=== PATIENT | female | born 1945 | race Caucasian/White ===

== ENCOUNTER 2022-05-15 09:42 | Outpatient (CLI) | payer MEDICARE, SELFPAY | END 2022-05-15 09:43 | disposition home or self-care (01) | LOC: ANHAUDIO 09:43 | PROVIDERS: PCP Internal Medicine; Visit Provider Nurse Practitioner | DX: H90.3 Sensorineural hearing loss, bilateral (principal) | CPT/HCPCS: 92557; 92567 ==

== ENCOUNTER 2025-02-05 09:47 | Outpatient (CLI) | payer MEDICARE, SELFPAY ==
--- OUTSIDE RECORDS SUMMARY | 2025-02-03 10:15 | XMS_ITS | Encounter Summary ---
Author Organization [facility] Address [address] [facility] [place] [address] Care Team Providers Care Lease Analyst Name Role Phone Felicity Jones RN, Justin MD Primary Care Provider [phone] Reason for Referral * Radiology Services (Routine) - Closed Specialty Diagnoses / Procedures Referred By Contac t Referred To Contact Diagnoses Alcoholic cirrhosis of liver without ascites (HCC) Secondary esophageal varices without bleeding (HCC) FH: colon cancer in relative diagnosed at >50 years old Procedures US Abdomen Limited Gabriele Pearl MD [address] DIV [place] [address] Phone: tel: fax: [facility] [phone] [place] [address] Phone: tel: fax: Referral ID Status Reason Start Date Expiration Date Visits Re quested Visits Authorized [id number] Closed 09/18/2024 09/18/2025 1 1 Reason for Visit * Radiology Services (Routine) - Closed Specialty Diagnoses / Procedures Referred By Contac t Referred To Contact Diagnoses Alcoholic cirrhosis of liver without ascites (HCC) Secondary esophageal varices without bleeding (HCC) FH: colon cancer in relative diagnosed at >50 years old Procedures US Abdomen Limited Gabriele Pearl MD [address] DIV [place]STR[place] [address] Phone: tel: fax: [facility] [phone] [place] [address] Phone: tel: fax: Referral ID Status Reason Start Date Expiration Date Visits Re quested Visits Authorized [id number] Closed 09/18/2024 09/18/2025 1 1 Encounter Details Date Type Department Care Team (Latest Contact Info) Description 02/03/2025 10:15 AM CDT - 02/03/2025 11:59 PM CDT Hospital Encounter [facility] [address] [place] [address] Gabriele Pearl MD [address] OF GASTR[place] [address] Discharge Disposition: Home or Self Care Social History Tobacco Use Types Packs/Day Years Used Date Smoking Tobacco: Former Cigarettes Q uit: 06/03/1967 Smokeless Tobacco: Never Alcohol Use Standard Drinks/Week Comments No 0 (1 standard drink = 0.6 oz pur e alcohol) AUDIT-C Answer Date Recorded Q1: How often do you have a drink containing alcohol? Never 08/13/2022 Q2: How many drinks containi ng alcohol do you have on a typical day when you are drinking? Patient does not drink Q3: How often do you have si x or more drinks on one occasion? 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 Answer Date of Assessment Author No 08/13/2022 11:37 AM Bee Valencia RN * Is person blind or have serious difficulty seeing? Answer Date of Assessment Author No 08/13/2022 11:37 AM CDBee Fox RN * Does person have serious difficulty walking/climbing stairs? Answer Date of Assessment Author No 08/13/2022 11:37 AM Bee Valencia RN * Does person have difficulty dressing/bathing? Answer Date of Assessment Author No 08/13/2022 11:37 AM Bee Valencia RN * Does person have difficulty doing errands alone? Answer Date of Assessment Author No 08/13/2022 11:37 AM Bee Valencia RN documented as of this encounter Mental Status * Does person have difficulty concentrating/remembering/making decisions? Answer Entry Date Author No 08/13/2022 11:37 AM Bee Valencia RN documented in this encounter Medications at Time of Discharge amLODIPine (NORVASC) 5 MG tablet Take 1 (one) tablet by mouth once daily 10/13/2019 levothyroxine (SYNTHROID) 75 MCG tablet Take 1 (one) tablet by mouth once daily 10/16/2019 losartan (COZAAR) 100 MG tablet Take 1 (one) tablet by mouth MULTIPLE VITAMIN PO Take 1 tablet by mouth pravastatin (Pravachol) 80 MG tablet Take 1 (one) tablet by mouth once daily 03/06/2024 propranolol (Inderal) 40 MG tablet TAKE 1 TABLET BY MOUTH NEEDED FOR ANXIETY. TAKE 30-60 MINUTES BEFORE ANXIETY PROVOKING SITUATION 04/13/2024 documented as of this encounter Plan of Treatment Upcoming Encounters Date Type Department Care Team (Late st Contact Info) Description 05/17/2025 9:00 AM STAPLER MACHINE Appointment [facility] [address] [place] [address] Radha Guillen MD [address] [phone] 05/17/2025 9:30 AM STAPLER MACHINE Office Visit [facility] - General Surgery [address] [place] [phone] Radha Guillen MD [address] [facility] [address] [place] [phone] 08/02/2025 9:15 AM STAPLER MACHINE Hospital Encounter [facility] [address] [place] [phone] Gabriele Pearl MD [address] [place] [address] [address] DIV [place] GASTR[place] [address] Surgery General 08/02/2025 9:15 AM STAPLER MACHINE - 08/02/2025 10:00 AM STAPLER MACHINE Surgery [facility]COPY [facility] [place] [phone] Gabriele Pearl MD [address] [place] [address] [address] DIV [place] GASTR[place] [address] COLONOSCOPY SCREEN---with Dae 08/04/2025 10:15 AM STAPLER MACHINE Appointment [facility] [id number] [place] [phone] Gabriele Pearl MD [address] [place] [address] [address] DIV [place] GASTRO[place] [address] 09/24/2025 10:00 AM CDT Office Visit [facility] - GI [address] [place] [address], [place] [phone] Gabriele Pearl MD [address] [place] [address] [address] DIV [place]STR[place] [address] Scheduled Procedures Name Priority Associated Diagnoses Date/Ti me COLONOSCOPY SCREEN Alcoholic cirrhosis of liver without ascites (HCC) Secondary esophageal varices without bleeding (HCC) FH: colon cancer in relative diagnosed at >50 years old 08/02/2025 9:15 AM STAPLER MACHINE ESOPHAGOGASTRODUODENOSCOPY ( EGD) DIAGNOSTIC Alcoholic cirrhosis of liver without ascites (HCC) Secondary esophageal varices without bleeding (HCC) FH: colon cancer in relative diagnosed at >50 years old 08/02/2025 9:15 AM STAPLER MACHINE documented as of this encounter Goals Goal Patient Goal Type Associated Problems Recent Progress Patient-Stated? Author Medication Management General On track( 025 9:47 AM CDT) Felicity Alarcon, RN Note: Expected end date: ongoing Interventions: Take all medications as prescribed Let your doctor know right away about any changes in your medications Make sure to request a refill of your medication at least one week prior to your last dose Safety General On track( 021 12:10 PM CDT) Felicity Alarcon RN Note: Expected end date: ongoing Interventions: Your nurse will assess your risk for falls/injury each visit Make sure appropriate safety devices are available and within reach Be aware of medications that could predispose you to falling Wear non-skid/rubber sole footwear Keep personal items within easy reach Use some light at night in your room documented as of this encounter Procedures Procedure Name Priority Date/Time Associated Diagnosis Comments US ABDOMEN LIMITED Routine 02/03/2025 10 :56 AM CDT Alcoholic cirrhosis of liver without ascites (HCC) Secondary esophageal varices without bleeding (HCC) FH: colon cancer in relative diagnosed at >50 years old documented in this encounter Results * US Abdomen Limited (02/03/2025 10:56 AM CDT) Anatomical Region Laterality Modality Abdomen Ultrasound 02/03/2025 10:5 9 AM CDT Impressions 02/03/2025 3:18 PM CDT Impression: Liver Visualization Score A: No or minimal limitations. US-1 Negative. Repeat surveillance US in 6 months. Hepatic cirrhosis > Dictated by Kelsy Ibarra MD (vice president compliance). > Dictated by Panel Flow Machine Operator IClarissa MD have personally reviewed and interpreted this examination/study. > Interpreting Provider: Clarissa George MD on 02/03/2025 3:18 PM Narrative 02/03/2025 3:18 PM CDT PROCEDURE: US ABDOMEN LIMITED, DATE/TIME OF EXAM: 02/03/2025 10:57 AM, LOCATION [facility] INDICATION: K70.30: Alcoholic cirrhosis of liver without ascites (HCC) I85.10: Secondary esophageal varices without bleeding (HCC) Z80.0: FH: colon cancer in relative diagnosed at >50 years old COMPARISON: Ultrasound abdomen dated 08/17/2024. FINDINGS: Liver Visualization Score: No or minimal limitations in liver visualization Liver Morphology: The liver has a coarse echotexture and nodular surface. Liver Observations: None. Main Portal Vein: Color Doppler evaluation demonstrates patency of the main portal vein. Hepatic Veins: Color Doppler evaluation demonstrates patency of the hepatic veins. Bile Ducts: The common bile duct is nondilated, measuring 4 mm. No intrahepatic or extrahepatic biliary dilation. Gallbladder: No gallstones or pericholecystic fluid is seen.. Sonographic Carr's sign is negative. Ascites: No ascites is present. Spleen: The spleen measures 8.8 cm in length. Pancreas: The visible pancreas is normal in echogenicity. Right Kidney: The right kidney measures 9.5 cm in length. Limited views of the right kidney reveal no evidence of nephrolithiasis or hydronephrosis. No discrete mass identified. Procedure Note Clarice George MD - 02/03/2025 PROCEDURE: US ABDOMEN LIMITED, DATE/TIME OF EXAM: 02/03/2025 10:57 AM, LOCATION [facility] INDICATION: K70.30: Alcoholic cirrhosis of liver without ascites (HCC) I85.10: Secondary esophageal varices without bleeding (HCC) Z80.0: FH: colon cancer in relative diagnosed at >50 years old COMPARISON: Ultrasound abdomen dated 08/17/2024. FINDINGS: Liver Visualization Score: No or minimal limitations in liver visualization Liver Morphology: The liver has a coarse echotexture and nodular surface. Liver Observations: None. Main Portal Vein: Color Doppler evaluation demonstrates patency of the main portal vein. Hepatic Veins: Color Doppler evaluation demonstrates patency of the hepatic veins. Bile Ducts: The common bile duct is nondilated, measuring 4 mm. No intrahepatic or extrahepatic biliary dilation. Gallbladder: No gallstones or pericholecystic fluid is seen.. Sonographic Carr'ssign is negative. Ascites: No ascites is present. Spleen: The spleen measures 8.8 cm in length. Pancreas: The visible pancreas is normal in echogenicity. Right Kidney: The right kidney measures 9.5 cm in length. Limited views of the right kidney reveal no evidence of nephrolithiasis or hydronephrosis. No discrete mass identified. Impression: Liver Visualization Score A: No or minimal limitations. US-1 Negative. Repeat surveillance US in 6 months. Hepatic cirrhosis > Dictated by Kelsy Ibarra MD (vice president compliance). > Dictated by Panel Flow Machine Operator IClarissa MD have personally reviewed and interpreted this examination/study. > Interpreting Provider: Clarissa George MD on 02/03/2025 3:18 PM us Gabriele Pearl MD ORDERABLES Final Result documented in this encounter Visit Diagnoses Diagnosis Alcoholic cirrhosis of liver without ascites (HCC) Alcoholic cirrhosis of liver Secondary esophageal varices without bleeding (HCC) Esophageal varices without mention of bleeding in diseases classified elsewhere FH: colon cancer in relative diagnosed at >50 years old Alcoholic cirrhosis of liver without ascites (HCC) Alcoholic cirrhosis of liver Secondary esophageal varices without bleeding (HCC) Esophageal varices without mention of bleeding in diseases classified elsewhere FH: colon cancer in relative diagnosed at >50 years old documented in this encounter Care Teams Lease Analyst Relationship Specialty Start Date End Date Pasha Galloway MD [address] [place] [address] PCP - General Family Medicine 05/11/24 Felicity Jones, RN Registered Nurse Hepatology 10/17/18 documented as of this encounter
--- NOTE | 2025-02-05 09:58 | ECG_ITS ---
Test Date: 2025-02-05 10:06:27 Measurements Intervals [place] Rate: 119 P: 0 ND: 0 QRS: 49 QRSD: 89 T: 26 QT: 311 QTc: 438 Interpretive Statements ATRIAL FIBRILLATION WITH RAPID VENTRICULAR RESPONSE MINIMAL ST DEPRESSION [0.025+ mV ST DEPRESSION] ABNORMAL RHYTHM ECG No previous ECG available for comparison Electronically Signed On 02-05-2025 12:40:58 CDT by Blayne Hancock M.D.
--- OUTSIDE RECORDS SUMMARY | 2025-02-05 09:58 | XMS_ITS | Clinical Summary ---
Author Organization [facility] Address [address] [place] [address] Care Team Providers Care Warehouse And Receiving Supervisor Name Role Phone Felicity Jones RN, Justin MD Primary Care Provider [phone] Source Comments [facility],non-owned Affiliates and Associated Physician Practices is amultiple site organization consisting of ambulatory clinics and hospital sitesin [place], [place], [place] and [place]. This disclosure is being madepursuant to the Care Everywhere program and may not contain all information available regarding this patient. Last updated 18.[facility] TabbedOut Allergies Active Allergy Reactions Criticality Noted Date Comments Lisinopril Other Low 04/10/2013 cough Medications * Be aware that medications may not be up to date on this document. Alwaysverify current medications with the patient. losartan (COZAAR) 100 MG tablet Take 1 (one) tablet by mouth Active MULTIPLE VITAMIN PO Take 1 tablet by mouth Active amLODIPine (NORVASC) 5 MG tablet Take 1 (one) tablet by mouth once daily 0 Active levothyroxine (SYNTHROID) 75 MCG tablet Take 1 (one) tablet by mouth once daily 0 Active propranolol (Inderal) 40 MG tablet TAKE 1 TABLET BY MOUTH NEEDED FOR ANXIETY. TAKE 30-60 MINUTES BEFORE ANXIETY PROVOKING SITUATION 4 Active pravastatin (Pravachol) 80 MG tablet Take 1 (one) tablet by mouth once daily 4 Active Active Problems Problem Noted Date Diagnosed Date Secondary esophageal varices without bleeding Colon adenoma 09/05/2022 Esophagitis 09/05/2022 FH: colon cancer in relative diagnosed at >50 ye ars old 04/06/2014 Overview (09/02/2017): 06/2012 1 7 mm polyp next due 06/2017 Alcoholic cirrhosis of liver without ascites 03/2013 Overview (09/02/2017): Alcoholic diagnosed in 2006, compensated. Encounters Date Type Department Care Team Description 02/03/2025 10:15 AM CDT - 02/03/2025 11:59 PM T Hospital Encounter [facility] US [address] [place] [address] Gabriele Pearl MD Discharge Disposition: Home or Self Care 02/03/2025 10:10 AM CDT - 02/03/2025 10:14 AM [facility] Hospital Encounter [facility] LAB OP DRAW STATION [address] [place] [address] Gabriele Pearl MD Discharge Disposition: Home or Self Care 02/03/2025 Travel from Last 3 Months Immunizations Immunization Administration Dates Next Due INFLUENZA VACCINE, TRIV. (AF LURIA, FLUZONE TRIVALENT; 6MO+) (IIV3) 03/01/2016,02/26/2014 Covid Pfizer primary monoval ent 12+ yr 0.3mL Purple cap 04/18/2021,08/01/2020,07/09/2020 INFLUENZA VACCINE 02/01/2021, 0,03/12/2019,2017 PNEUMOCOCCAL PCV7 CONJ, PEDS 03/12/2016 Zoster Hzv Vacc Recombinant Inj Im 05/12/2019, Family History Medical History Relation Name Comments Cancer - Colon Father Status: Decea sed None Known Mother Status: d Relation Name Status Comments Father Mother Social History Tobacco Use Types Packs/Day Years Used Date Smoking Tobacco: Former Cigarettes Q uit: 06/03/1967 Smokeless Tobacco: Never Tobacco Cessation:Counseling Given: No Alcohol Use Standard Drinks/Week Comments No 0 [...] on file Legal Sex Female 5:18 PM [employer] Gender Identity Not on file Sexual Orientation Not on file Last Filed Vital Signs Vital Sign Reading Time Taken Comments Blood Pressure 126/85 09/18/2024 9:45 AM CDT Pulse 94 09/18/2024 9:45 AM CDT Temperature 36.4 C (97.5 F) 09/18/2024 9:45 AM CDT Respiratory Rate 10 09/14/2022 10:00 AM CDT Oxygen Saturation 99% 09/18/2024 9:45 AM CDT Inhaled Oxygen Concentration - - Weight 70.9 kg (156 lb 3.2 oz) 09/18/2024 9:45 A M CDT Height 162.6 cm (5' 4) 09/18/2024 9:45 AM CDT Body Mass Index 26.81 09/18/2024 9:45 AM CDT Plan of Treatment Upcoming Encounters Date Type Department Care Team (Late st Contact Info) Description 05/17/2025 9:00 AM [employer]ITY [employer] Appointment [facility] [address] [place] [address] Radha Guillen MD [address] [phone] 05/17/2025 9:30 AM [employer]IVERSITY [employer]OLLER Office Visit [facility] - General Surgery [address] [place] [phone] Radha Guillen MD [address] [facility] [address] [place] [phone] 08/02/2025 9:15 AM [employer]ERSITY [employer] Hospital Encounter [facility] ENDOSCOPY [address] [place] [phone] Gabriele Pearl MD [address] [place] [address] [address] [place] [address] Surgery General 08/02/2025 9:15 AM UNIVERSITY CONTROLLER - 08/02/2025 10:00 AM UNIVERSITY CONTROLLER Surgery [facility] ENDOSCOPY [facility][note 3][address] [place] [phone] Gabriele Pearl MD [address] [place] [address] [address] [place] [address] COLONOSCOPY SCREEN---with Dae 08/04/2025 10:15 AM UNIVERSITY CONTROLLER Appointment [facility] US [facility][note 3][address] [place] [phone] Gabriele Pearl MD [address] [place] [address] [address] [place] [address] 09/24/2025 10:00 AM CDT Office Visit [facility] - GI [address] [place] [address], [place] [phone] Gabriele eParl MD [address] [place] [address] [address] [place] [address] Scheduled Procedures Name Priority Associated Diagnoses Date/Ti me COLONOSCOPY SCREEN Alcoholic cirrhosis of liver without ascites (HCC) Secondary esophageal varices without bleeding (HCC) FH: colon cancer in relative diagnosed at >50 years old 08/02/2025 9:15 AM UNIVERSITY CONTROLLER ESOPHAGOGASTRODUODENOSCOPY ( EGD) DIAGNOSTIC Alcoholic cirrhosis of liver without ascites (HCC) Secondary esophageal varices without bleeding (HCC) FH: colon cancer in relative diagnosed at >50 years old 08/02/2025 9:15 AM [employer]IVERSITY CONTRO[employer]ER Health Maintenance Due Date Last Done Comments BONE DENSITY TESTING 1943 DTAP/TDAP/TD VACCINES (1 - Tdap) 12/04/1962 PNEUMOCOCCAL VACCINE 50+ (1 of 2 - PCV) 12/04/1962 HEPATITIS B VACCINE (1 of 3 - Risk 3-dose series) 2003 Respiratory Syncytial Virus (RSV) Vaccine Pt: or over 60 yrs (1 - 1-dose 75+ series) 12/04/2018 DEPRESSION SCREENING 06/03/2024 MEDICARE AWV CALENDAR YEAR 2024 COVID-19 VACCINE ( season) 2025 04/18/2021, 08/01/2020, 07/09/2020 INFLUENZA VACCINE (#1) 2025 , 02/21/2020, 03/12/2019, Additional history exists ZOSTER VACCINE Completed 05/12/2019, 03/12/2019 HIB VACCINE Aged Out No longer eligi ble based on patient's age to complete this topic HPV VACCINE Aged Out No longer eligi ble based on patient's age to complete this topic MENINGOCOCCAL (Group B) VACCINE SHARED DECISION-MAKING Aged Out No longer eligible based on patient's age to complete this topic MENINGOCOCCAL GROUPS A/C/Y/W VACCINE Aged Out No longer eligible based on patient's age to complete this topic Goals Goal Patient Goal Type Associated Problems Recent Progress Patient-Stated? Author Medication Management General On track( 025 9:47 AM CDT) No Felicity Jones, RN Note: Expected end date: ongoing Interventions: Take all medications as prescribed Let your doctor know right away about any changes in your medications Make sure to request a refill of your medication at least one week prior to your last dose Safety General On track( 021 12:10 PM CDT) No Felicity Jones, RN Note: Expected end date: ongoing Interventions: Your nurse will assess your risk for falls/injury each visit Make sure appropriate safety devices are available and within reach Be aware of medications that could predispose you to falling Wear non-skid/rubber sole footwear Keep personal items within easy reach Use some light at night in your room Procedures Procedure Name Priority Date/Time Associated Diagnosis Comments BASIC METABOLIC PANEL (CALCIUM TOTAL) Routine 02/03/2025 11:04 AM CDT Alcoholic cirrhosis of liver without ascites (HCC) Secondary esophageal varices without bleeding (HCC) FH: colon cancer in relative diagnosed at >50 years old HEPATIC FUNCTION PANEL Routine 02/03/2025 11:04 AM CDT Alcoholic cirrhosis of liver without ascites (HCC) Secondary esophageal varices without bleeding (HCC) FH: colon cancer in relative diagnosed at >50 years old CBC W AUTO DIFFERENTIAL Routine 02/03/2025 11:04 AM CDT Alcoholic cirrhosis of liver without ascites (HCC) Secondary esophageal varices without bleeding (HCC) FH: colon cancer in relative diagnosed at >50 years old US ABDOMEN LIMITED Routine 02/03/2025 10 :56 AM CDT Alcoholic cirrhosis of liver without ascites (HCC) Secondary esophageal varices without bleeding (HCC) FH: colon cancer in relative diagnosed at >50 years old from Last 3 Months Results * (ABNORMAL) CBC WITH DIFFERENTIAL (02/03/2025 11:04 AM CDT) Pathologist [facility] WBC 4.1 4.0 - 10.7 x10E9/L 02/03/2025 11:[address] [facility] [employer] [facility] RBC Count 4.31 3.90 - 5.20 x10E12/L 02/03/2025 11:58 AM [facility] Hemoglobin 13.8 11.9 - 15.8 g/dL 02/03/2025 11:58 AM [facility] Hematocrit 40.0 34.8 - 46.1 % 02/03/2025 11:58 AM [facility] MCV 92.8 80.0 - 98.0 fL 02/03/2025 11:[address] [facility] [facility] MCH 32.0 26.7 - 33.6 pg 02/03/2025 11:[address] [facility] [facility] MCHC 34.5 31.7 - 36.3 g/dL 02/03/2025 11:58 AM [facility] RDW-CV 12.4 11.3 - 14.8 % 02/03/2025 11:[address] [facility] [facility] Platelet Count 146(L) 150 - 420 x10E9/L 02/03/2025 11:[address] [facility] MPV 10.1 7.8 - 11.4 fL 02/03/2025 11:58 AM [facility] Neutrophil % 62.7 41.0 - 74.0 % 02/03/2025 11:58 AM [facility] Lymphocyte % 21.6 17.0 - 47.0 % 02/03/2025 11:58 AM [facility] Monocyte % 12.9(H) 3.0 - 11.0 % 02/03/2025 11:58 AM [facility] Eosinophil % 2.4 0.0 - 7.0 % 02/03/2025 11:58 AM [facility] Basophil % 0.2 0.0 - 1.6 % 02/03/2025 11:58 AM [facility] Immature Granulocytes % 0.2 0.0 - 1.0 % 02/03/2025 11:58 AM [facility] Neutrophil Absolute 2.58 1.60 - 7.50 x10E9/L 02/03/2025 11:58 AM [facility] Lymphocyte Absolute 0.89(L) 1.00 - 4.40 x10E9/L 02/03/2025 11:58 AM [facility] Monocyte Absolute 0.53 0.15 - 1.00 x10E9/L 02/03/2025 11:58 AM [facility] Eosinophil Absolute 0.10 0.00 - 0.60 x10E9/L 02/03/2025 11:58 AM [facility] Basophil Absolute 0.01 0.00 - 0.13 x10E9/L 02/03/2025 11:58 AM [facility] Blood BLOOD SPECIMEN / Unknown Lab Venipuncture / Unknown 02/03/2025 11:04 AM CDT 02/03/2025 11:42 AM CDT us Gabriele Pearl MD LAB - HEMATOLOGY ORDERABLES Fi nal Result [facility] [address] [place] [address], [facility] [phone] * (ABNORMAL) BASIC METABOLIC PANEL (CALCIUM TOTAL) (02/03/2025 11:04 AM CDT) Pathologist [facility] BUN 9 7 - 26 mg/dL 02/03/2025 12:09 PM [facility] Creatinine 0.54(L) 0.56 - 0.96 mg/dL 02/03/2025 12:09 PM [facility] Sodium 136 136 - 145 mmol/L 02/03/2025 12:09 PM [facility] Potassium 4.2 3.5 - 4.5 mmol/L 02/03/2025 12:09 PM [facility] Chloride 105 98 - 107 mmol/L 02/03/2025 12:09 PM [facility] CO2 23 22 - 29 mmol/L 02/03/2025 12:09 PM [facility] Glucose 98 70 - 99 mg/dL 02/03/2025 12:09 PM [facility] Calcium 10.0 8.4 - 10.2 mg/dL 02/03/2025 12:09 PM [facility] Anion Gap 8 6 - 16 02/03/2025 12:09 PM [facility] BUN/Creatinine Ratio 17 7 - 23 02/03/2025 12:09 PM [facility] Osmolality Calculated 281 275 - 295 mOsm/kg 02/03/2025 12:09 PM [facility] eGFR by CKD-EPI >90 >=90 mL/min/1.7 3 m2 02/03/2025 12:09 PM [facility] Comment:Estimated Glomerular Filtration Rate (eGFR) calculated using the CKD-EPI Creatinine Equation (2020), per the National Kidney Foundation and [place] Society [employer] Nephrology recommendations. Blood BLOOD SPECIMEN / Unknown Lab Venipuncture / Unknown 02/03/2025 11:04 AM CDT 02/03/2025 11:55 AM CDT Gabriele Pearl MD LAB - CHEMISTRY ORDERABLES Fin al Result [facility] [address] [place] [address], [place] [phone] * (ABNORMAL) HEPATIC FUNCTION PANEL (02/03/2025 11:04 AM CDT) [facility] Protein Total 7.7 6.0 - 8.3 g/dL 025 12:[address] [facility] [facility] [facility] Albumin 4.9 3.4 - 5.0 g/dL 02/03/2025 12:09 PM [facility] Bilirubin Total 1.4(H) 0.2 - 1.2 mg/dL 08/2024 12:09 PM [facility] Bilirubin Conjugated 0.5 0.1 - 0.5 mg/dL 02/03/2025 12:09 PM [facility] Bilirubin Unconjugated 0.9 Unconjugated Bilirubin is a calculated value: Reference ranges have not been established. mg/dL 02/03/2025 12:09 PM [facility] Alkaline Phosphatase 102 40 - 150 U/L 02/03/2025 12:09 PM [facility] ALT 9 5 - 55 U/L 02/03/2025 12:09 PM [facility] AST 20 5 - 34 U/L 02/03/2025 12:09 PM [facility] Albumin/Globulin Ratio 1.8 1.1 - 2.3 02/03/2025 12:09 PM [facility] Blood BLOOD SPECIMEN / Unknown Lab Venipuncture / Unknown 02/03/2025 11:04 AM CDT 02/03/2025 11:55 AM CDT us Gabriele Pearl MD LAB - CHEMISTRY ORDERABLES Fin al Result Performing Organization Address [facility] de Phone Number [address] [id number] [phone] * US Abdomen Limited (02/03/2025 10:56 AM CDT) Anatomical Region Laterality Modality Abdomen Ultrasound 02/03/2025 10:5 9 AM CDT Impressions 02/03/2025 3:18 PM CDT Impression: Liver Visualization Score A: No or minimal limitations. US-1 Negative. Repeat surveillance US in 6 months. Hepatic cirrhosis > Dictated by Kelsy Ibarra MD (residential manager). > Dictated by Top Flavor Attendant I, E. Kina George MD have personally reviewed and interpreted this examination/study. > Interpreting Provider: Clarissa George MD on 02/03/2025 3:18 PM Narrative 02/03/2025 3:18 PM CDT PROCEDURE: US ABDOMEN LIMITED, DATE/TIME OF EXAM: 02/03/2025 10:57 AM, LOCATION [facility] INDICATION: K70.30: Alcoholic cirrhosis of liver [...] DATE/TIME OF EXAM: 02/03/2025 10:57 AM, LOCATION [facility] INDICATION: K70.30: Alcoholic cirrhosis of liver [...] cirrhosis > Dictated by Kelsy Ibarra MD (residential manager). > Dictated by Top Flavor Attendant IClarissa MD have personally reviewed and interpreted this examination/study. > Interpreting Provider: Clarissa George MD on 02/03/2025 3:18 PM Gabriele Pearl MD US ORDERABLES Final Result from Last 3 Months Insurance [facility] MANAGED MEDICARE ADV [address] [place] [id number] [facility] MANAGED MEDICARE ADV Care Teams Warehouse And Receiving Supervisor Relationship Specialty Start Date End Date Pasha Galloway MD [address] [facility] [place] [address] PCP - General Family Medicine 05/11/24 Felicity Jones, RN Registered Nurse Hepatology 10/17/18
== END 2025-02-05 09:48 | disposition home or self-care (01) ==
PROVIDERS: PCP Family Medicine; Visit Provider Family Medicine
DX: I49.9 Cardiac arrhythmia, unspecified (principal); M85.88 Other specified disorders of bone density and structure, other site; M85.852 Other specified disorders of bone density and structure, left thigh; M85.851 Other specified disorders of bone density and structure, right thigh
CPT/HCPCS: 93005

== ENCOUNTER 2025-02-10 10:28 | Outpatient (CLI) | payer MEDICARE, SELFPAY ==
--- OUTSIDE RECORDS SUMMARY | 2003-05-04 03:15 | XMS_ITS | Continuity of Care Document ---
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 [address] [facility], [place], [address], [place]. tel: [phone] Family History Family Member Type Diagnosis Age At Onset No Information Payers Payer name Insurance type Covered green party ID Authoriza tion(s) No Information Social History Type Description Quantity Date Captured Comments Sex Female Smoking Status No Information Chief Complaint And Reason For Visit No Information Reason For Referral Reason For Referral No Information History Of Present Illness Encounter Date Complaint History Of Prese nt Illness No Information Functional Status Date Functional Assessmen t No Information Instructions Date Instruction Additional Infor mation No Information Assessments Type Assessment Date No Information Patient Care Teams Name Effective Dates (start - stop) Status Members No Information
--- NOTE | ~2025-02-10 | DEXA_ITS ---
Bone Density Report Name: KIRAN SIMON Age: 79 Sex: Female Ethnicity: White Date of : 1945 Indication: postmenopausal; screening for osteoporosis; height loss; Referring Provider: PEDRO HURTADO Study: Bone densitometry was performed. Exam Date: February 10, 2025 Accession number: [id number] Bone Density: Region BMD T-score Z-score Classification AP Spine(L1-L4) 0.864 -1.7 1.1 Osteopenia Femoral Neck (Left) 0.640 -1.9 0.5 Osteopenia Total Hip (Left) 0.806 -1.1 1.0 Osteopenia Femoral Neck (Right) 0.719 -1.2 1.2 Osteopenia Total Hip (Right) 0.786 -1.3 0.8 Osteopenia Total Hip Mean 0.796 -1.2 0.9 Osteopenia World Health Organization criteria for BMD impression classify patients as: Normal (T-score at or above -1.0), Osteopenia (T-score between -1.0 and -2.5), or Osteoporosis (T-score at or below -2.5). 10-year Fracture Risk(1): Major Osteoporotic Fracture 15% Hip Fracture 4.2% Reported Risk Factors: [place] (), Neck BMD=0.640, BMI=27.8 (1) FRAX(R) Version 3.08. Fracture probability calculated for an untreated patient. Fracture probability may be lower if the patient has received treatment. Clinical Information Provided by Patient: Has used the following medications: Vitamin D Patient maximum height was 65 Menopause Age: 53 No regular weight bearing exercise Does not regularly consume dairy products Drinks caffeinated beverages Onset of menses at age 14 Number of children 2 Impression: The patient has low bone mass, based on the Left Femoral Neck T-score. The patient has an estimated ten-year risk of hip fracture of 4.2% and an estimated ten-year risk of major fracture of 15%, based on the WHO FRAX algorithm. Discussion: BONE DENSITY IS LOW AT ONE OR MORE SKELETAL SITES. THE PATIENT'S BMD AND CLINICAL RISK FACTORS CONTRIBUTE TO THIS PATIENT'S INCREASED RISK OF FRACTURE. This patient's lowest T-score is low at one or more skeletal sites. It meets the World Health Organization's (WHO) criteria for ?low bone mass? (T-score between -1.0 and -2.5). The patient's 10-year risk of hip fracture as calculated by FRAX exceeds the threshold where pharmacological therapy is recommended by the National Osteoporosis Foundation (NOF). However, all treatment decisions require clinical judgment and consideration of individual patient factors, including patient preferences, comorbidities, previous drug use, risk factors not captured in the FRAX model (e.g., frailty, falls, vitamin D deficiency, increased bone turnover, interval significant decline in bone density) and possible under or overestimation of fracture risk by FRAX. The patient should follow a healthful lifestyle (good nutrition with adequate calcium and vitamin D, and appropriate weight-bearing exercise). Follow-Up: Consider a repeat BMD and Vertebral Fracture Assessment (VFA) exam in 2 years or sooner if medically necessary, to reassess this patient's status. Reported by: KELLY on 02/10/2025 11:04:00 AM. Reviewed, dictated and finalized at location A.
--- OUTSIDE RECORDS SUMMARY | 2025-02-10 11:19 | XMS_ITS | Clinical Summary ---
Author Organization [facility] Address [address] [place] [address] Care Team Providers Care Cork Grinder Name Role Phone Felicity Jones RN, Justin MD Primary Care Provider [phone] Source Comments [facility],non-owned Affiliates and Associated Physician Practices is amultiple site organization consisting of ambulatory clinics and hospital sitesin [place], [place], [place] and [place]. This disclosure is being madepursuant to the Care Everywhere program and may not contain all information available regarding this patient. 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 OFFICER Gender Identity Not on file Sexual Orientation [...] st Contact Info) Description 05/17/2025 9:00 AM CUSTOMS OFFICER Appointment [facility] [address] [place] [address] Radha Guillen MD [address] [phone] 05/17/2025 9:30 AM CUSTOMS OFFICER Office Visit [facility] - General Surgery [address] [place] [phone] Radha Guillen MD [address] [facility] [address] [place] [phone] 08/02/2025 9:15 AM CUSTOMS OFFICER Hospital Encounter [facility] ENDOSCOPY [address] [place] [phone] Gabriele Pearl MD [address] [place] [address] [address] [place] [address] Surgery General 08/02/2025 9:15 AM CUSTOMS OFFICER - 08/02/2025 10:00 AM CUSTOMS OFFICER Surgery [facility] ENDOSCOPY [facility] [place] [phone] Gabriele Pearl MD [address] [place] [address] [address] [place] [address] COLONOSCOPY SCREEN---with Dae 08/04/2025 10:15 AM CUSTOMS OFFICER Appointment [facility] US [facility] [place] [phone] Gabriele Pearl MD [address] [place] [address] [address] [place] [address] 09/24/2025 10:00 AM CDT Office Visit [facility] - GI [address] [place] [address], [place] [phone] Gabriele Pearl MD [address] [place] [address] [address] [place] [address] Scheduled Procedures Name Priority Associated Diagnoses Date/Ti me COLONOSCOPY SCREEN Alcoholic cirrhosis of liver without ascites (HCC) Secondary esophageal varices without bleeding (HCC) FH: colon cancer in relative diagnosed at >50 years old 08/02/2025 9:15 AM CUSTOMS OFFICER ESOPHAGOGASTRODUODENOSCOPY ( EGD) DIAGNOSTIC Alcoholic cirrhosis of liver without ascites (HCC) Secondary esophageal varices without bleeding (HCC) FH: colon cancer in relative diagnosed at >50 years old 08/02/2025 9:15 AM CUSTOMS OFFICER Health Maintenance Due Date Last Done Comments [...] WITH DIFFERENTIAL (02/03/2025 11:04 AM CDT) Pathologist [facility] WBC 4.1 4.0 - 10.7 x10E9/L 02/03/2025 11:58 AM [facility] RBC Count 4.31 3.90 - 5.20 x10E12/L 02/03/2025 11:58 AM [facility] Hemoglobin 13.8 11.9 - 15.8 g/dL 02/03/2025 11:58 AM [facility] Hematocrit 40.0 34.8 - 46.1 % 02/03/2025 11:58 AM [facility] MCV 92.8 80.0 - 98.0 fL 02/03/2025 11:58 AM [facility] MCH 32.0 26.7 - 33.6 pg 02/03/2025 11:58 AM [facility] MCHC 34.5 31.7 - 36.3 g/dL 02/03/2025 11:58 AM [facility] RDW-CV 12.4 11.3 - 14.8 % 02/03/2025 11:58 AM [facility] Platelet Count 146(L) 150 - 420 x10E9/L 02/03/2025 11:58 AM [facility] MPV 10.1 7.8 - 11.4 fL 02/03/2025 11:58 AM [facility] Neutrophil % 62.7 41.0 - 74.0 % 02/03/2025 11:58 AM [facility] Lymphocyte % 21.6 17.0 - 47.0 % 02/03/2025 11:58 AM [facility] Monocyte % 12.9(H) 3.0 - 11.0 % 02/03/2025 11:58 AM [facility] Eosinophil % 2.4 0.0 - 7.0 % 02/03/2025 11:58 AM [facility] Basophil % 0.2 0.0 - 1.6 % 02/03/2025 11:58 AM [facility] Immature Granulocytes % 0.2 0.0 - 1.0 % 02/03/2025 11:58 AM [facility] Neutrophil Absolute 2.58 1.60 - 7.50 x10E9/L 02/03/2025 11:58 AM [facility] Lymphocyte Absolute 0.89(L) 1.00 - 4.40 x10E9/L 02/03/2025 11:58 AM [facility] Monocyte Absolute 0.53 0.15 - 1.00 x10E9/L 02/03/2025 11:58 AM [facility] Eosinophil Absolute 0.10 0.00 - 0.60 x10E9/L 02/03/2025 11:58 AM [facility] Basophil Absolute 0.01 0.00 - 0.13 x10E9/L 02/03/2025 11:58 AM [facility] Blood BLOOD SPECIMEN / Unknown Lab Venipuncture / Unknown 02/03/2025 11:04 AM CDT 02/03/2025 11:42 AM CDT us Gabriele Pearl MD LAB - HEMATOLOGY ORDERABLES Fi nal Result [facility] [address] [place] [address], [facility] [phone] * (ABNORMAL) BASIC METABOLIC PANEL (CALCIUM TOTAL) (02/03/2025 11:04 AM CDT) Pathologist [facility] BUN 9 7 - 26 mg/dL 02/03/2025 12:09 PM [facility] Creatinine 0.54(L) 0.56 - 0.96 mg/dL 02/03/2025 12:09 PM [facility] Sodium 136 136 - 145 mmol/L 02/03/2025 12:09 PM [facility] Potassium 4.2 3.5 - 4.5 mmol/L 02/03/2025 12:09 PM [facility] Chloride 105 98 - 107 mmol/L 02/03/2025 12:09 PM [facility] CO2 23 22 - 29 mmol/L 02/03/2025 12:09 PM [facility] Glucose 98 70 - 99 mg/dL 02/03/2025 12:09 PM [facility] Calcium 10.0 8.4 - 10.2 mg/dL 02/03/2025 12:09 PM [facility] Anion Gap 8 6 - 16 02/03/2025 12:09 PM [facility] BUN/Creatinine Ratio 17 7 - 23 02/03/2025 12:09 PM [facility] Osmolality Calculated 281 275 - 295 mOsm/kg 02/03/2025 12:09 PM [facility] eGFR by CKD-EPI >90 >=90 mL/min/1.7 3 m2 02/03/2025 12:09 PM [facility] Comment:Estimated Glomerular Filtration Rate (eGFR) calculated using the CKD-EPI Creatinine Equation (2020), per the National Kidney Foundation and [place] Society of Nephrology recommendations. Blood BLOOD SPECIMEN / Unknown Lab Venipuncture / Unknown 02/03/2025 11:04 AM CDT 02/03/2025 11:55 AM CDT Gabriele Pearl MD LAB - CHEMISTRY ORDERABLES Fin al Result [facility] [address] [place] [address], [place] [phone] * (ABNORMAL) HEPATIC FUNCTION PANEL (02/03/2025 11:04 AM CDT) [facility] Protein Total 7.7 6.0 - 8.3 g/dL 025 12:09 PM [facility] Albumin 4.9 3.4 - 5.0 g/dL 02/03/2025 12:09 PM [facility] Bilirubin Total 1.4(H) 0.2 - 1.2 mg/dL 08/2024 12:09 PM [facility] Bilirubin Conjugated 0.5 0.1 - 0.5 mg/dL 02/03/2025 12:09 PM [facility] Bilirubin Unconjugated 0.9 Unconjugated Bilirubin is a calculated value: Reference ranges have not been established. mg/dL 02/03/2025 12:09 PM [facility] Alkaline Phosphatase 102 40 - 150 U/L 02/03/2025 12:09 PM [facility] ALT 9 5 - 55 U/L 02/03/2025 12:09 PM [facility] AST 20 5 - 34 U/L 02/03/2025 12:09 PM [facility] Albumin/Globulin Ratio 1.8 1.1 - 2.3 02/03/2025 12:09 PM [facility] Blood BLOOD SPECIMEN / Unknown Lab Venipuncture / Unknown 02/03/2025 11:04 AM CDT 02/03/2025 11:55 AM CDT us Gabriele Pearl MD LAB - CHEMISTRY ORDERABLES Fin al Result Performing Organization Address [facility] de Phone Number [address] [address] [phone] * US Abdomen Limited (02/03/2025 10:56 AM CDT) Anatomical Region Laterality Modality Abdomen Ultrasound 02/03/2025 10:5 9 AM CDT Impressions 02/03/2025 3:18 PM CDT Impression: Liver Visualization Score A: No or minimal limitations. US-1 Negative. Repeat surveillance US in 6 months. Hepatic cirrhosis > Dictated by Kelsy Ibarra MD (cmo & president). > Dictated by Supervisor Cell Efficiency I, E. Kina George MD have personally reviewed and interpreted this examination/study. > Interpreting Provider: Clarissa George MD on 02/03/2025 3:18 PM Narrative 02/03/2025 3:18 PM CDT PROCEDURE: US ABDOMEN LIMITED, DATE/TIME OF EXAM: 02/03/2025 10:57 AM, LOCATION [facility] INDICATION: K70.30: Alcoholic cirrhosis of liver [...] DATE/TIME OF EXAM: 02/03/2025 10:57 AM, LOCATION [facility] INDICATION: K70.30: Alcoholic cirrhosis of liver [...] cirrhosis > Dictated by Kelsy Ibarra MD (cmo & president). > Dictated by Supervisor Cell Efficiency IClarissa MD have personally reviewed and interpreted this examination/study. > Interpreting Provider: Clarissa George MD on 02/03/2025 3:18 PM Gabriele Pearl MD US ORDERABLES Final Result from Last 3 Months Insurance [facility] MANAGED MEDICARE ADV [address] [place] [phone] [facility] MANAGED MEDICARE ADV Care Teams Cork Grinder Relationship Specialty Start Date End Date Pasha Galloway MD [address] [place] [address] PCP - General Family Medicine 05/11/24 Felicity Jones, RN Registered Nurse Hepatology 10/17/18
== END 2025-02-10 10:29 | disposition home or self-care (01) ==
LOC: ANHFOHIMG 10:29
PROVIDERS: PCP Family Medicine; Visit Provider Family Medicine
DX: Z78.0 Asymptomatic menopausal state (principal); M85.88 Other specified disorders of bone density and structure, other site; M85.852 Other specified disorders of bone density and structure, left thigh; M85.851 Other specified disorders of bone density and structure, right thigh
CPT/HCPCS: 77080